=== PATIENT | female | born 2000 | race African-American/Black ===

== ENCOUNTER 2022-07-22 02:44 | Inpatient (IN) | payer OTHER ==
[~2022-07-22] VITALS: Ht 170.2 cm; Wt 40.9 kg
[2022-07-22] MEDS ORDERED: HALOPERIDOL 5MG/ML 1ML VIAL IM ONE ×2 (03:20→10:40)
[2022-07-22] MEDS ORDERED: MIDAZOLAM INJ 2MG/2ML VIAL IM ONE ×2 (03:20→10:40)
[2022-07-22 03:48] LABS: HEMOGLOBIN 14.1 g/dl (12.0-15.5); MEAN CORPUSCULAR HEMOGLOBIN 30.5 pg (27.0-33.0); MEAN CORPUSCULAR HGB CONC 32.8 g/dl (32.0-36.5); MEAN CORPUSCULAR VOLUME 93.1 fl (80.0-96.0); PLATELET COUNT, AUTOMATED 164 10^3/uL (150-450); RED BLOOD COUNT 4.62 10^6/uL (4.00-5.40); WHITE BLOOD COUNT 9.8 10^3/uL (4.0-10.0)
[2022-07-22 04:14] LABS: ETHYL ALCOHOL (ETHANOL) < 0.003 % (0.000-0.010)
[2022-07-22 04:16] LABS: ACETAMINOPHEN LEVEL < 2.0 UG/ML (10.0-20.0); ALBUMIN 4.8 G/DL (3.2-5.2); ALKALINE PHOSPHATASE 71 U/L (46-116); ALT/SGPT < 9 U/L (7.0-40); AST/SGOT 20 U/L (<34); BILIRUBIN,DIRECT 0.3 MG/DL (<0.4); BILIRUBIN,TOTAL 0.7 MG/DL (0.3-1.2); BLOOD UREA NITROGEN 9 MG/DL (9-23); CALCIUM LEVEL 9.2 MG/DL (8.5-10.1); CARBON DIOXIDE LEVEL 25 MMOL/L (20-31); CHLORIDE LEVEL 110 MMOL/L (98-107); CREATININE FOR GFR 0.83 MG/DL (0.55-1.30); GLUCOSE, FASTING 106 MG/DL (60-100); SALICYLATE LEVEL < 3.0 MG/DL (<30); SODIUM LEVEL 141 MMOL/L (136-145); TOTAL PROTEIN 7.7 G/DL (5.7-8.2)
[2022-07-22 04:19] LABS: HCG, SERUM QUALITATIVE NEGATIVE (NEGATIVE)
[2022-07-22 04:24] LABS: THYROID STIMULATING HORMONE 0.874 uIU/ML (0.48-4.17)
[2022-07-22] MEDS ORDERED: diphenhydrAMINE 50MG/ML VIAL IM ONE (10:40)
[2022-07-22 17:50] LABS: AMPHETAMINES LEVEL URINE NEGATIVE (NEGATIVE); BARBITURATES URINE NEGATIVE (NEGATIVE); COCAINE METABOLITE URINE NEGATIVE (NEGATIVE); METHADONE URINE NEGATIVE (NEGATIVE); OPIATES URINE NEGATIVE (NEGATIVE)
[2022-07-22 17:51] LABS: BENZODIAZEPINES URINE POSITIVE (NEGATIVE); CANNABINOIDS URINE POSITIVE (NEGATIVE); PHENCYCLIDINE URINE NEGATIVE (NEGATIVE)
[2022-07-22] MEDS ORDERED: OLANZapine ORAL DISINTEGRATING TAB 5MG PO PRN (21:10)
[2022-07-22] MEDS ORDERED: NICOTINE 21MG/24HR 1 EA TRANSDERMAL TD PRN (21:10)
[2022-07-22] MEDS ORDERED: IBUPROFEN 400MG TAB PO PRN (21:10)
[2022-07-22] MEDS ORDERED: MOM 30ML SUSPENSION UDC PO PRN (21:10)
[2022-07-22] MEDS ORDERED: MAALOX 30 ML SUSP *UDC PO PRN (21:10)
[2022-07-22 23:04] VITALS: BP 108/63
[2022-07-23] MEDS ORDERED: UNRESOLVED CLARIFICATION ENTRY XX SCH (00:01)
[2022-07-23 06:00] VITALS: BP 105/60
[2022-07-23] MEDS: OLANZapine 5 MG TAB PO SCH ×2 (09:00→20:21)
[2022-07-23 11:30] LABS: FREE T4 1.37 NG/DL (0.83-1.43)
[2022-07-23] MEDS ORDERED: diphenhydrAMINE 50MG/ML VIAL IV STA (11:57)
[2022-07-23] MEDS ORDERED: LORazepam 2 MG/ML 1ML VIAL IM STA (11:57)
[2022-07-23] MEDS ORDERED: HALOPERIDOL 5MG/ML 1ML VIAL IM STA (12:05)
[2022-07-23] MEDS ORDERED: diphenhydrAMINE 50MG/ML VIAL IM STA (12:05)
[2022-07-23 12:45] VITALS: BP 106/69
[2022-07-24 09:09] LABS: CHOLESTEROL RISK RATIO 2.41 (<5); HDL CHOLESTEROL 47.6 MG/DL (>40); LDL CHOLESTEROL 51.8 MG/DL (<100); NON-HDL-C 67.4 MG/DL
[2022-07-24] MEDS: OLANZapine 5 MG TAB PO SCH (09:45)
[2022-07-24] MEDS ORDERED: BENZTROPINE 1 MG TAB PO PRN (09:50)
[2022-07-24] MEDS: DIVALPROEX 250MG *ER* TAB PO SCH (11:12)
[2022-07-24 17:38] VITALS: BP 120/79
[2022-07-24] MEDS: metroNIDAZOLE 70GM VAGINAL GEL PV SCH (20:05)
[2022-07-25 06:46] VITALS: BP 113/74
[2022-07-25] MEDS: DIVALPROEX 250MG *ER* TAB PO SCH (09:07)
[2022-07-25] MEDS: LORazepam 1 MG TAB PO PRN (17:41)
[2022-07-25 18:18] VITALS: BP 137/87
[2022-07-25] MEDS: metroNIDAZOLE 70GM VAGINAL GEL PV SCH (20:39)
[2022-07-25] MEDS: traZODone 50 MG TAB PO PRN (20:40)
[2022-07-26 06:18] VITALS: BP 111/62
[2022-07-26] MEDS: DIVALPROEX 250MG *ER* TAB PO SCH (09:22)
[2022-07-26] MEDS: LORazepam 1 MG TAB PO PRN (16:34)
[2022-07-26 18:00] VITALS: BP 138/78
[2022-07-26] MEDS: metroNIDAZOLE 70GM VAGINAL GEL PV SCH (19:38)
[2022-07-26] MEDS: traZODone 50 MG TAB PO PRN (19:59)
[2022-07-27 06:12] VITALS: BP 98/52
[2022-07-27] MEDS: DIVALPROEX 250MG *ER* TAB PO SCH ×3 (10:46→23:00)
[2022-07-27] MEDS: LORazepam 1 MG TAB PO PRN (16:32)
[2022-07-27] MEDS ORDERED: PILL CUTTER 1 EACH XX PRN (16:50)
[2022-07-27 18:00] VITALS: BP 113/69
[2022-07-27] MEDS: metroNIDAZOLE 70GM VAGINAL GEL PV SCH (21:00)
[2022-07-27] MEDS: traZODone 50 MG TAB PO PRN (23:01)
[2022-07-28 07:18] VITALS: BP 143/85
[2022-07-28] MEDS: DIVALPROEX 250MG *ER* TAB PO SCH ×2 (08:01→21:19)
[2022-07-28] MEDS: ACETAMINOPHEN TAB 650MG DOSE (2X325MG) PO PRN (14:03)
[2022-07-28] MEDS: metroNIDAZOLE 70GM VAGINAL GEL PV SCH (21:00)
[2022-07-28] MEDS: traZODone 50 MG TAB PO PRN (21:19)
[2022-07-29 06:49] VITALS: BP 102/53
[2022-07-29] MEDS: DIVALPROEX 250MG *ER* TAB PO SCH ×2 (07:58→21:00)
[2022-07-29 17:30] VITALS: BP 107/67
[2022-07-29] MEDS: metroNIDAZOLE 70GM VAGINAL GEL PV SCH (21:00)
[2022-07-30 06:43] VITALS: BP 111/59
[2022-07-30] MEDS: DIVALPROEX 250MG *ER* TAB PO SCH ×2 (08:32→20:45)
[2022-07-30] MEDS: ACETAMINOPHEN TAB 650MG DOSE (2X325MG) PO PRN ×2 (08:33→16:38)
[2022-07-30] MEDS ORDERED: ARIPiprazole 10 MG TAB NG SCH (09:00)
[2022-07-30] MEDS: ARIPiprazole 10 MG TAB PO SCH (11:29)
[2022-07-30 16:33] VITALS: BP 112/72
[2022-07-30] MEDS: LORazepam 1 MG TAB PO PRN (17:34)
[2022-07-30] MEDS: metroNIDAZOLE 70GM VAGINAL GEL PV SCH (20:45)
[2022-07-30] MEDS: traZODone 50 MG TAB PO PRN (20:46)
[2022-07-31] MEDS: ARIPiprazole 10 MG TAB PO SCH (08:42)
[2022-07-31] MEDS: DIVALPROEX 250MG *ER* TAB PO SCH ×2 (08:43→20:03)
[2022-07-31 18:35] VITALS: BP 128/63
[2022-07-31] MEDS: traZODone 50 MG TAB PO PRN (20:03)
[2022-07-31] MEDS: metroNIDAZOLE 70GM VAGINAL GEL PV SCH (20:04)
[2022-07-31] MEDS: ONDANSETRON 4MG ORAL DISINTEGRATING TAB PO PRN (20:31)
[2022-08-01 06:40] VITALS: BP 110/72
[2022-08-01] MEDS: ARIPiprazole 10 MG TAB PO SCH (08:10)
[2022-08-01] MEDS: DIVALPROEX 250MG *ER* TAB PO SCH ×2 (08:10→20:22)
[2022-08-01] MEDS: ONDANSETRON 4MG ORAL DISINTEGRATING TAB PO PRN (11:35)
[2022-08-01 16:14] VITALS: BP 123/79
[2022-08-01] MEDS: traZODone 50 MG TAB PO PRN (20:22)
[2022-08-01] MEDS: metroNIDAZOLE 70GM VAGINAL GEL PV SCH (20:23)
[2022-08-02 06:14] VITALS: BP 102/66
[2022-08-02] MEDS: ARIPiprazole 10 MG TAB PO SCH (08:07)
[2022-08-02] MEDS: DIVALPROEX 250MG *ER* TAB PO SCH ×2 (08:07→20:43)
[2022-08-02 16:42] VITALS: BP 102/69
[2022-08-02] MEDS: traZODone 50 MG TAB PO PRN (20:42)
[2022-08-02] MEDS: ONDANSETRON 4MG ORAL DISINTEGRATING TAB PO PRN (20:43)
[2022-08-02] MEDS: metroNIDAZOLE 70GM VAGINAL GEL PV SCH (20:44)
[2022-08-03 06:29] VITALS: BP 91/53
[2022-08-03] MEDS: DIVALPROEX 250MG *ER* TAB PO SCH ×2 (08:02→20:06)
[2022-08-03] MEDS: ARIPiprazole 10 MG TAB PO SCH (08:02)
[2022-08-03 17:48] VITALS: BP 126/59
[2022-08-03] MEDS: ONDANSETRON 4MG ORAL DISINTEGRATING TAB PO PRN (18:08)
[2022-08-03] MEDS: traZODone 50 MG TAB PO PRN (20:06)
[2022-08-04 06:43] VITALS: BP 93/51
[2022-08-04] MEDS: ARIPiprazole 10 MG TAB PO SCH (08:00)
[2022-08-04] MEDS: DIVALPROEX 250MG *ER* TAB PO SCH (08:01)
[2022-08-04] MEDS ORDERED: TRAZ-252 PO (09:19)
[2022-08-04] MEDS ORDERED: BENZ1TAB5 PO (09:19)
[2022-08-04] MEDS ORDERED: DEPA250T2 PO (09:19)
[2022-08-04] MEDS ORDERED: ABIL10TA9 PO (09:19)
[2022-08-04] MEDS ORDERED: NICO21PAT TD (09:19)
[2022-08-04] MEDS ORDERED: ABIL400I IM (09:19)
[2022-08-04] MEDS ORDERED: ARIPiprazole MONOHYDRATE 400 MG INJ (ABILIFY)(FREE PSY INPT ONLY) IM ONE (11:00)
== END 2022-08-04 11:52 | disposition home or self-care (01) | DRG 753 ==
LOC: M ED 02:44 → M ED INP 21:07 → M PSY 22:58
PROVIDERS: ADMIT Student in an Organized Health Care Education/Training Program; ATTEND Student in an Organized Health Care Education/Training Program
DX: F31.2 Bipolar disorder, current episode manic severe with psychotic features (principal); F50.9 Eating disorder, unspecified; Z78.1 Physical restraint status; Z91.199 Patient's noncompliance with other medical treatment and regimen due to unspecified reason; F12.10 Cannabis abuse, uncomplicated; F17.210 Nicotine dependence, cigarettes, uncomplicated